=== PATIENT | female | born 1930 ===

== ENCOUNTER 2018-08-30 01:56 | Emergency (ER) | payer MEDICARE, MEDICAID ==
[2018-08-30 01:57] VITALS: BMI 20.2
[2018-08-30 02:22] VITALS: RESP 16; O2SAT 97
--- NOTE | 2018-08-30 03:42 | ED PDOC ---
HPI: Back Time Seen by Provider: 08/30/18 02:29 Chief Complaint (Nursing): Back Pain Chief Complaint (Provider): whole body pain History Per: [employer] (federico louise [id number]) History/Exam Limitations: no limitations Onset/Duration Of Symptoms: Days ("many") Current Symptoms Are (Timing): Still Present Quality Of Discomfort: Sharp Severity: Mild Previous Symptoms: Back Pain Exacerbating Factor(s): Nothing Additional History Per: Patient Additional Complaint(s): pt presents with whole body pain for many many days, she says. no fever/chest pain/vomiting/diarrhea. states she really came to escort her daughter who was also being seen in the ER. Past Medical History Vital Signs: Last Vital Signs Temp 99.7 F H 08/30/18 02:17 Pulse 78 08/30/18 02:17 Resp 16 08/30/18 02:17 BP 172/71 H 08/30/18 02:17 Pulse Ox 97 08/30/18 02:17 - Medical History PMH: Anemia, Anxiety, Arthritis, Asthma, Back Problems (HX CHRONIC BACK PAIN), CAD, COPD, Diabetes, Fractures (left wrist AND RT. HIP, LEFT LEG), Gastritis, HTN, Hypercholesterolemia, Hyperlipidemia, Osteoporosis, Chronic Kidney Disease Denies: Seizures - Surgical History Surgical History: Coronary Stent (cad cath 04/2016 with stent X2), Endoscopy - Family History Family History: States: Unknown Family Hx - Social History Current smoker - smoking cessation education provided: No Alcohol: None Drugs: Denies - Immunization History Hx Tetanus Toxoid Vaccination: Yes (3 mos. ago) Hx Influenza Vaccination: No Hx Pneumococcal Vaccination: Yes - Home Medications Home Medications: Ambulatory Orders Medication Instructions Recorded RX: Albuterol HFA [Ventolin HFA 90 2 puff IH QID PRN #1 inhaler 05/03/18 mcg/actuation (8 g)] RX: Aspirin [Ecotrin] 81 mg PO DAILY 30 Days tabec 05/03/18 RX: Docusate [Colace] 100 mg PO TIDCC 90 Days cap 05/03/18 RX: Esomeprazole Magnesium [Nexium] 40 mg PO DAILY #30 alvarez. 05/03/18 RX: Ferrous Sulfate [Feosol] 325 mg PO BID #60 tab 05/03/18 RX: Losartan [Cozaar] 25 mg PO DAILY #30 tab 05/03/18 RX: Tiotropium [Spiriva] 18 mcg INH RQ24 #30 05/03/18 RX: amLODIPine [Norvasc] 10 mg PO DAILY #30 tab 05/03/18 RX: Insulin Human (NPH)/Regular 10 units SC ACD 07/26/18 [Novolin 70/30 (70/30 units/ml) 10 ml] RX: Insulin Human (NPH)/Regular 20 units SC ACB PRN 07/26/18 [Novolin 70/30 (70/30 units/ml) 10 ml] - Allergies Allergies/Adverse Reactions: Allergies Allergy/AdvReac Type Severity Reaction Status Date / Time No Known Allergies Allergy Verified 08/15/18 17:32 Review of Systems ROS Statement: Except As Marked, All Systems Reviewed And Found Negative Musculoskeletal: Positive for: Other (body pain) Physical Exam - Reviewed Nursing Documentation Reviewed: Yes - Physical Exam Appears: Positive for: Well, Non-toxic, No Acute Distress Head Exam: Positive for: ATRAUMATIC, NORMAL INSPECTION, NORMOCEPHALIC Skin: Positive for: Normal Color, Warm, Dry Eye Exam: Positive for: Normal appearance ENT: Positive for: Normal ENT Inspection Neck: Positive for: Normal Cardiovascular/Chest: Positive for: Regular Rate, Rhythm Respiratory: Positive for: Normal Breath Sounds Gastrointestinal/Abdominal: Positive for: Normal Exam Extremity: Positive for: Normal ROM Neurologic/Psych: Positive for: Alert, Oriented - ECG O2 Sat by Pulse Oximetry: 97 Medical Decision Making Medical Decision Making: whole body pain given t ylenol vitals stabilized pt feels fine, stable gait, normal exam. stable for dc home Disposition - Clinical Impression Clinical Impression: Back strain - Patient ED Disposition Is Patient to be Admitted: No Counseled Patient/Family Regarding: Studies Performed, Diagnosis, Need For Followup - Disposition Disposition: Routine/Home Disposition Time: 04:00 Condition: IMPROVED Additional Instructions: follow up with your doctor in 1-2 days return to the ED with any worsening or concerning symptoms Forms: [employer] (Welsh) Print Language: NEPALESE
[2018-08-30 04:04] VITALS: BP 158/70; PULSE 68; TEMP 98.4
== END 2018-08-30 04:10 | disposition home or self-care (01) ==
LOC: H.ER 01:56
DX: M54.9 Dorsalgia, unspecified (principal); I44.7 Left bundle-branch block, unspecified